=== PATIENT | female | born 1985 | race Caucasian/White ===

== ENCOUNTER 2020-10-15 01:22 | Emergency (ER) | payer BC ==
[~2020-10-15] VITALS: Ht 170.2 cm; Wt 86.2 kg
--- NOTE | 2020-10-15 01:30 | NUR ---
PT BIBS WITH COMPLAINTS OF A SORE THROAT FOR 1 WEEK. ALERT AND ORIENTED X4. AMBULATORY AND NON LABORED BREATHING.
[2020-10-15] MEDS ORDERED: DEXAMETHASONE SOLN 5 MG/5 ML UDC ONE (02:00)
[2020-10-15] MEDS ORDERED: KETOROLAC TROMETHAMINE INJ 30 MG/ML VIAL ONE (02:00)
[2020-10-15] MEDS: KETOROLAC TROMETHAMINE INJ 30 MG/ML VIAL IM ONE (02:09)
[2020-10-15] MEDS: DEXAMETHASONE SOLN 5 MG/5 ML UDC PO ONE (02:09)
--- NOTE | 2020-10-15 03:40 | NUR ---
COMPUTER SCIENCES PROFESSOR AT BEDSIDE.
[2020-10-15] MEDS ORDERED: AZIT250T13 PO (04:07)
--- NOTE | 2020-10-15 04:10 | NUR ---
Patient discharged to home in stable condition. Written and verbal after care instructions given. Patient verbalizes understanding of instruction.
[2020-10-15 04:49] VITALS: BP 110/70
== END 2020-10-15 04:49 | disposition home or self-care (01) ==
LOC: ER 01:34
DX: J02.9 Acute pharyngitis, unspecified (principal)
CPT/HCPCS: 70360; 96372; 99283; J1885; J8540